=== PATIENT | female | born 1980 | race Two or more races ===

== ENCOUNTER 2022-03-15 20:16 | Emergency (ER) | payer OTHER ==
[~2022-03-15] VITALS: Ht 157.5 cm; Wt 73.2 kg
[2022-03-15 20:30] VITALS: BP 122/86
[2022-03-15] MEDS ORDERED: NAPR-1025 PO (20:42)
[2022-03-15] MEDS ORDERED: GABA-1181 PO (20:42)
[2022-03-15] MEDS ORDERED: CYCL-448 PO (20:42)
[2022-03-15] MEDS ORDERED: KETOROLAC TROMETHAMINE 60 MG/2 ML VIAL IM ONE (20:45)
[2022-03-15] MEDS ORDERED: GABAPENTIN 300 MG CAPSULE PO ONE (20:45)
[2022-03-15] MEDS ORDERED: METHOCARBAMOL 500 MG TABLET PO ONE (20:45)
== END 2022-03-15 21:21 | disposition home or self-care (01) ==
LOC: EMS 20:16
DX: S16.1XXA Strain of muscle, fascia and tendon at neck level, initial encounter (principal); M62.838 Other muscle spasm; S76.812A Strain of other specified muscles, fascia and tendons at thigh level, left thigh, initial encounter; F17.210 Nicotine dependence, cigarettes, uncomplicated; V49.9XXA Car occupant (driver) (passenger) injured in unspecified traffic accident, initial encounter; Y92.410 Unspecified street and highway as the place of occurrence of the external cause; Y93.89 Activity, other specified; Y99.8 Other external cause status
CPT/HCPCS: 99283; 96372; J1885